=== PATIENT | male | born 1995 | race Two or more races ===

== ENCOUNTER 2020-03-15 15:51 | Emergency (ER) | payer MEDICAID, OTHER ==
[~2020-03-15] VITALS: Ht 172.7 cm; Wt 63.5 kg
[2020-03-15] MEDS ORDERED: HYDROcodone-ACET 10/325MG TAB ONE (17:20)
[2020-03-15] MEDS ORDERED: TETANUS-DIPTH-ACEL PERTUSSIS 0.5ML SYR Tdap IM ONE (17:30)
[2020-03-15] MEDS ORDERED: HYDROcodone-ACET 10/325MG TAB PO ONE (17:30)
[2020-03-15] MEDS ORDERED: LIDOCAINE 2% (LOCAL ANESTH.) PF 5ml SDV ONE (18:17)
[2020-03-15] MEDS ORDERED: LIDOCAINE 2%HCL (LOCAL ANESTH.) INJ 10ml MDV IJ ONE (18:45)
[2020-03-15] MEDS ORDERED: cefTRIAXone W LIDOCAINE 1 GM IM IM ONE (19:45)
[2020-03-15] MEDS ORDERED: MORPHINE SULF INJ 2 MG/ML SYRINGE 1ML IM ONE (20:30)
[2020-03-15] MEDS ORDERED: ONDANSETRON ODT 4 MG TAB PO ONE (20:30)
[2020-03-15] MEDS ORDERED: cefTRIAXone SOD 1,000 MG VL ONE (21:10)
[2020-03-15 21:15] VITALS: BP 145/80
== END 2020-03-15 21:24 | disposition home or self-care (01) ==
LOC: ER 15:57
DX: S62.617A Displaced fracture of proximal phalanx of left little finger, initial encounter for closed fracture (principal); V29.9XXA Motorcycle rider (driver) (passenger) injured in unspecified traffic accident, initial encounter; Y93.55 Activity, bike riding; Y92.488 Other paved roadways as the place of occurrence of the external cause; Y99.8 Other external cause status
CPT/HCPCS: 26770; 73120; 73130; 90471; 90715; 96372; 99284; J0696; J2001; J2270; Q0162